=== PATIENT | female | born 1980 | race African-American/Black ===

== ENCOUNTER 2018-09-15 23:44 | Emergency (ER) | payer BC ==
[~2018-09-15] VITALS: Ht 160 cm; Wt 93.9 kg
[2018-09-16] MEDS ORDERED: KETOROLAC TROMETHAMINE 30 MG/ML VIAL IV STA (00:02)
[2018-09-16] MEDS ORDERED: HYDRALAZINE HCL 20 MG/ML VIAL IV STA (00:03)
[2018-09-16] MEDS ORDERED: CYCLOBENZAPRINE HCL 10 MG TAB PO ONE (00:15)
[2018-09-16] MEDS ORDERED: LABETALOL HCL 5 MG/ML 20ML VIAL IV STA (00:34)
[2018-09-16] MEDS ORDERED: MORPHINE SULFATE 2 MG/ML SYR 1ML IV STA (00:34)
[2018-09-16 00:59] VITALS: BP 134/62
== END 2018-09-16 01:00 | disposition home or self-care (01) ==
LOC: FSED 23:44
DX: M54.2 Cervicalgia (principal); S16.1XXA Strain of muscle, fascia and tendon at neck level, initial encounter; M43.6 Torticollis
CPT/HCPCS: 93005; 99283

== ENCOUNTER 2018-09-22 21:49 | Emergency (ER) | payer BC ==
[~2018-09-22] VITALS: Ht 160 cm; Wt 93.9 kg
--- OUTSIDE RECORDS SUMMARY | 2018-09-22 21:52 | XMS REPORT ---
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 Allergies, Adverse Reactions, Alerts This patient has no known allergies or adverse reactions. Medications This patient has no known medications. Encounters Start Date/Time End Date/Time Encounter Type Admission Type Attending Clinicians [facility] Facility Care Department Encounter ID [id number] 00:00:00 2017-07-18 00:00:00 [facility] [id number]
[2018-09-22] MEDS ORDERED: HYDROCODONE/APAP 10MG-325MG TAB PO ONE (22:45)
[2018-09-22] MEDS ORDERED: KETOROLAC TROMETHAMINE 60 MG/2 ML VIAL IM ONE (22:45)
== END 2018-09-22 23:41 | disposition home or self-care (01) ==
LOC: FSED 21:49
DX: M54.2 Cervicalgia (principal); S16.1XXA Strain of muscle, fascia and tendon at neck level, initial encounter
CPT/HCPCS: 99283